=== PATIENT | female | born 1950 | race African-American/Black ===

== ENCOUNTER 2017-09-05 22:35 | Emergency (ER) | payer OTHER ==
[~2017-09-05] VITALS: Ht 157.5 cm; Wt 50.0 kg
[2017-09-06 00:45] LABS: CLARITY URINE CLEAR (CLEAR); COLOR URINE YELLOW (YELLOW); KETONES URINE TRACE (NEGATIVE); LEUKOCYTE ESTERASE URINE NEGATIVE (NEGATIVE); NITRITE URINE NEGATIVE (NEGATIVE); OCCULT BLOOD URINE 1+ (NEGATIVE); PH URINE 6.5 (4.5-8.0); PROTEIN URINE NEGATIVE (NEGATIVE); SPECIFIC GRAVITY URINE 1.015 (1.005-1.030); UROBILINOGEN URINE 0.2 E.U./dL (0.2-1.0)
[2017-09-06 00:46] LABS: CHLORIDE 104 mEq/L (98-107)
[2017-09-06 00:47] LABS: BASOPHILS % 1.2 % (0.0-2.0); EOSINOPHILS % 0.6 % (0.0-5.0); HEMATOCRIT. 40.1 % (36.0-48.0); HEMOGLOBIN. 13.7 g/dL (12.0-16.0); INR 1.1; LYMPHOCYTES % 18.3 % (20.0-50.0); MEAN CORPUSCULAR HEMOGLOBIN 31.4 pg (28.0-32.0); MEAN CORPUSCULAR VOLUME 91.9 fL (81.0-99.0); MEAN PLATELET VOLUME 8.4 fl (7.4-10.4); MONOCYTES % 6.1 % (2.0-8.0); NEUTROPHILS % 73.8 % (40.0-76.0); PLATELET 274 x1000/uL (130-400); PROTHROMBIN TIME 11.4 sec (9.4-11.6); RED BLOOD CELL COUNT 4.36 mill/uL (4.2-5.4); RED CELL DISTRIBUTION WIDTH 13.8 % (11.6-14.6)
[2017-09-06] MEDS ORDERED: ONDANSETRON HCL 4MG/2ML VIAL IV ONE (01:00)
[2017-09-06] MEDS ORDERED: MORPHINE SULFATE 4 MG/ML CPJ (NOT FOR IM USE) IV ONE (01:00)
[2017-09-06 02:34] VITALS: BP 149/86
== END 2017-09-06 03:00 | disposition home or self-care (01) ==
LOC: ER 22:35
DX: K80.20 Calculus of gallbladder without cholecystitis without obstruction (principal); K76.89 Other specified diseases of liver; F17.200 Nicotine dependence, unspecified, uncomplicated
CPT/HCPCS: 36415; 71045; 74176; 76705; 80053; 81003; 83605; 83690; 85025; 85610; 96374; 96375; 99285; J2270; J2405